=== PATIENT | male | born 2000 | race Two or more races ===

== ENCOUNTER 2020-04-01 07:20 | Emergency (ER) | payer SELFPAY ==
[~2020-04-01] VITALS: Ht 195.6 cm; Wt 103.5 kg
--- NOTE | 2020-04-01 10:20 | NUR ---
POLICE AIDE: PT TO ROOM FROM HANNA RIZZO
--- NOTE | 2020-04-01 10:50 | NUR ---
SWABS NEG. TONSILITIS.
[2020-04-01] MEDS ORDERED: DEXAMETHASONE 4 MG TABLET ONE (11:00)
[2020-04-01] MEDS ORDERED: DEXAMETHASONE 4 MG TABLET PO ONE ×2 (11:00→12:30)
[2020-04-01] MEDS ORDERED: IBUPROFEN 600 MG TABLET ONE (11:00)
[2020-04-01] MEDS ORDERED: IBUPROFEN 600 MG TABLET PO ONE (11:00)
--- NOTE | 2020-04-01 11:13 | NUR ---
REPORT TO CALI ARMENDARIZ.
--- NOTE | 2020-04-01 11:13 | NUR ---
RECEIVED REPORT FROM KALA TIRADO. PT RESTING ON [address].
[2020-04-01 11:21] VITALS: BP 138/75
--- NOTE | 2020-04-01 11:21 | NUR ---
PT RESTING ON GURNEY. NADN. HOPKINS.
--- NOTE | 2020-04-01 12:14 | NUR ---
DISCUSSED RAD RESULTS W/ ERP DR RIVAS WHO STATES PT DOES NOT MEET CRITERIA FOR ADMISSION AND IS OKAY TO DC.
== END 2020-04-01 12:16 | disposition home or self-care (01) ==
LOC: ED 10:53
DX: J03.01 Acute recurrent streptococcal tonsillitis (principal); R13.10 Dysphagia, unspecified
CPT/HCPCS: 36415; 70360; 71045; 86308; 87081; 87880; 93005; 99285